=== PATIENT | female | born 1945 | race African-American/Black ===

== ENCOUNTER 2017-07-17 10:22 | Outpatient (CLI) | payer MEDICARE ==
--- NOTE | 2017-07-17 11:48 | Mammography Report ---
BONE DENSITY STUDY: DEFINITIONS: BMD = Bone Mineral Density T-score = BMD related to mean peak bone mass of young adult (mean expressed in Standard Deviation) Z-score = Age matched BMD expressed in SD World Health Organization (WHO) Diagnostic Criteria Normal T-score > -1 SD Osteopenia T-score between -1 and -2.4 SD Osteoporosis T-score -2.5 SD or below FINDINGS: The weighted average BMD of lumbar spine L1-L4 is a 0.888 with a T-score of -1.4. The weighted average BMD of hip is 0.750 with a T-score of -1.6. IMPRESSION: The patient's T-score is diagnostic for osteopenia and average relative risk for fracture. NOTE: BMD is not the only risk factor for fracture; also consider factors such as the patient's age, risk of falling, previous osteoporotic fracture, family history of osteoporotic fractures, current smoker, and low body weight. Garcia's triangle is a region of interest in femur, predominantly of trabecular bone. It is not a true anatomic site, and [facility] does not recommend its use clinically.
== END 2017-07-17 10:23 | disposition home or self-care (01) ==
LOC: MAMMO 10:22
DX: M85.88 Other specified disorders of bone density and structure, other site (principal)
CPT/HCPCS: 77080

== ENCOUNTER 2017-11-28 09:29 | Outpatient (CLI) | payer MEDICARE ==
--- NOTE | 2017-11-28 11:30 | XRay Report ---
RIGHT HIP RADIOGRAPHS INDICATION: Hip pain. COMPARISON: None similar. FINDINGS: An AP pelvic radiograph with frog-leg projection of the right hip demonstrate normal femoral head contours. Mild pelvic tilt/rotation. Mild left hip degenerative narrowing possible with slight acetabular spurring. Approximately 2.8 cm left gluteal calcified injection granuloma. Lower lumbar spine degenerative changes/scoliosis partially imaged. Nonobstructive bowel gas pattern. CONCLUSION: No acute right hip radiographic abnormality with few other findings, as described. Thank you for the opportunity to participate in this patient's care.
--- NOTE | 2017-11-28 11:36 | XRay Report ---
LUMBAR SPINE RADIOGRAPHS INDICATION: Lumbar radiculopathy. COMPARISON: None similar. FINDINGS: AP and lateral lumbar spine radiographs demonstrate mild dextroscoliosis apex about L2. Approximately 50% L1 superior endplate compression fracture/deformity, presumed old. Mild multilevel spinal degenerative spurring. Mid to lower lumbar facet arthropathy. Possible osteopenia. Nonaneurysmal abdominal aortoiliac atherosclerotic calcifications. Nonobstructive bowel gas pattern. Intact SI joints. CONCLUSION: Multilevel lumbar degenerative changes, as detailed above. Please also correlate clinically and with prior relevant imaging, if available. Thank you for the opportunity to participate in this patient's care.
--- NOTE | 2017-11-28 12:02 | XRay Report ---
BILATERAL KNEE RADIOGRAPHS INDICATION: Knee pain. COMPARISON: None similar. FINDINGS: AP, lateral and oblique bilateral knee radiographs demonstrate grossly intact articulation. RIGHT KNEE: Patellofemoral and slight medial compartment narrowing possible. Medial corners and superior and inferior patellar articular poles spurring. Moderate to large suprapatellar effusion. LEFT KNEE: Moderate medial compartment and patellar articular degenerative spurring and narrowing. No definite large suprapatellar effusion. CONCLUSION: Bilateral knee osteoarthritic changes with right suprapatellar effusion suspected, as detailed above. Thank you for the opportunity to participate in this patient's care.
== END 2017-11-28 09:30 | disposition home or self-care (01) ==
LOC: XRAY 09:29
PROVIDERS: ATTEND Chiropractor
DX: M17.0 Bilateral primary osteoarthritis of knee (principal); M47.897 Other spondylosis, lumbosacral region; M54.16 Radiculopathy, lumbar region; M25.552 Pain in left hip; M25.551 Pain in right hip; I70.0 Atherosclerosis of aorta
CPT/HCPCS: 72100